=== PATIENT | female | born 1970 | race Caucasian/White ===

== ENCOUNTER 2018-12-30 03:39 | Observation (INO) | payer OTHER ==
[~2018-12-30] VITALS: Ht 160 cm; Wt 118.6 kg
[2018-12-30] MEDS ORDERED: METFORMIN HCL850 MG PO (04:08)
[2018-12-30] MEDS ORDERED: AMLODIPINE BESYL5 MG PO (04:08)
[2018-12-30] MEDS ORDERED: LOSARTAN POTASS50 MG PO (04:08)
[2018-12-30] MEDS ORDERED: ZYPREXA10 MG PO (04:08)
[2018-12-30] MEDS ORDERED: RANITIDINE HCL150 MG PO (04:09)
[2018-12-30] MEDS ORDERED: PROZAC40 MG PO (04:09)
[2018-12-30] MEDS ORDERED: ZYPREXA2.5 MG PO (04:09)
[2018-12-30] MEDS ORDERED: ZYRTEC10 MG PO (04:10)
[2018-12-30] MEDS ORDERED: SYMBICORT 16010.2 GM INH (04:11)
[2018-12-30] MEDS ORDERED: PROAIR HFA8.5 GM INH (04:11)
[2018-12-30] MEDS ORDERED: ALBUTEROL2.5 MG/3 M INH (04:12)
[2018-12-30] MEDS ORDERED: IPRAT-ALBUT 0.5-3 ML INH (04:12)
--- NOTE | 2018-12-30 06:55 | NUR ---
PT ADMITTED TO ROOM 108 FROM ED, WITH COPD EXCERBATION. ABLE TO AMBULATE BY SELF TO BATHROOM TO VOID, AND PUT SELF BACK INTO BED. CONT. PULSE OX IN PLACE, READING 91 ON RA, WITH 96 HR. NO INCREASE IN SOB NOTED WHEN AMBULATE TO BATHROOM AND BACK. 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 CALL LIGHT EXPLAINED WELL.
--- NOTE | 2018-12-30 08:49 | NUR ---
PATIENT IN BED RESTING SHE ORDERED BREAKFAST.
--- NOTE | 2018-12-30 08:58 | NUR ---
DR CARDOSO IN ROOM TO DO ADMISSION. PATIENT LAYING IN BED WITH HOB UP TO 45 DEGREES. INTERACTING WITH STAFF APPROPRIATELY.
--- NOTE | 2018-12-30 09:20 | NUR ---
PT PLANS ON RETURNING HOME [place]. WE TALKED IN DETAIL ABOUT HER PREFERENCES TO RETURN TO HER [place]. WE ALSO TALKED ABOUT HER ILLNESS AND REASONS FOR ADMISSION--SHE IS AWARE THAT SHE HAS ASTHMA AND STATES SHE KNOWS THIS IS WORSENING AND HAS A FOLLOW UP WITH A TRAVEL INSURANCE AGENT ON JANUARY 25 IN THE [facility]. SHE ALSO STATES SHE REALIZES HER COPD IS WORSENING. WE TALKED ABOUT HER WORKING WITH A CHW TO GET CONNECTED WITH A PCP NOW THAT SHE HAS MOVED HERE AND SHE WOULD MUCH LIKE IT IF THEY COULD GET HER STARTED WITH SOMEONE IN THE CLINIC. SHE STATES SHE UNDERSTANDS HER MEDICATIONS AND KNOWS THE SIDE EFFECTS OF THEM.
--- NOTE | 2018-12-30 10:02 | NUR ---
PT LAYING IN BED, FAMILY AT BS-PT ON RM O2. VERY LITTLE SLEEP FROM ALBUTEROL, AND PT SAYS AFTER IT WEARS OFF, SHE WILL SLEEP. FELT VERY GOOD ABOUT THE CARE SHE IS RECEIVING, GOOD HUMOR. THANKED ME FOR COMING IN, EXTENDED A BLESSING, WILL CONTINUE TO FOLLOW NEEDED
--- NOTE | 2018-12-30 18:20 | NUR ---
A&OX3. RA. SL IV. TOLERATING ADA DIET. UP IN ROOM STANDBY ASSIST. BS CHECKS AC/HS. CONT PULSE OX; TRENDING 02 SAT 91-93%. SOLUMEDROL/BRTH TX'S. CPAP AT NIGHT.
--- NOTE | 2018-12-30 20:08 | NUR ---
COOP WITH ASSESSMENT, SOB WHEN MOVING FROM COUCH BY WINDOW BACK TO BED. SATS DROPPED FROM 93% TO 89%, BACK TO 90-92% AFTER CDB. NO OTHER C/O
--- NOTE | 2018-12-31 03:00 | NUR ---
[facility] down time from 12/30/18 @2100 to 12/31/18 0300. See paper charting
--- NOTE | 2018-12-31 03:59 | NUR ---
RESTING, CPAP IN PLACE, NO RESP DISTRESS, CPOX INPLACE, SATS 96%. CALL LIGHT AND FLUDIS AT BEDSIDE
--- NOTE | 2018-12-31 05:09 | NUR ---
CURRENTLY RESTING, EYES CLOSED, WEARING HOME CPAP AT THIS TIME. ON ROOM AIR IN ROOM. RECEIVING NEBS. INDEPENDENT IN ROOM, VOIDING QS. COOPERATIVE WITH PROCEDURES. NO C/O APIN
--- NOTE | 2018-12-31 07:10 | NUR ---
BEDSIDE HANDOFF REPORT RECEIVED FROM RISK CONTROL CONSULTANT RN. PT SLEEPING, CPAP ON, LEFT UNDISTURBED.
--- NOTE | 2018-12-31 07:37 | NUR ---
PT REQUESTING NEB, SHEET ROCK TAPER CALLED AND WILL COME TO ROOM.
--- NOTE | 2018-12-31 08:29 | NUR ---
PT RESTIGN IN BED. PT ON ROOM AIR, 02 SATS 86-89%, PT STATES BREATHING FEELS BETTER THAN THIS MORNING BUT WORSE THAN YESTERDAY, LUNG SOUNDS COARSE WITH EXPIRATORY WHEEZE, OCCASIONAL PRODUCTIVE COUGH. PT DENIES PAIN. DENIES NAUSE, BOWEL TONES ACTIVE, TOLERATING ADA DIET, BLOOD GLUCOE 228, GIVEN 7 UNITS SS HUMALOG. CMS INTACT, TRACE EDEMA IN LOWER LEGS. PT PLACED ON 2L NC. PT DENIES OTHER NEEDS AT THIS TIME. INDEPENDENT IN ROOM.
[2018-12-31] MEDS ORDERED: VITAMIN C1000 MG PO (09:27)
[2018-12-31] MEDS ORDERED: MULTI VITAMIN1 EACH PO (09:27)
[2018-12-31] MEDS ORDERED: CALCIUM 600 +1 EAC3 PO (09:28)
--- NOTE | 2018-12-31 09:29 | NUR ---
MED REC COMPLETE
--- NOTE | 2018-12-31 09:35 | NUR ---
PATIENT SITTING UP IN CHAIR. DAUGHTER IN ROOM. VITAL SIGNS AND I&O DONE. LINENS CHANGED. CALL LIGHT WITHIN REACH. ICE WATER GIVEN. NO OTHER NEEDS AT THIS TIME
--- NOTE | 2018-12-31 12:44 | NUR ---
PT RESTING, ALERT, ORIENTED AND FINALLY GOT A GOOD NIGHTS REST. PT ADMITTED THAT SHE WAS SOMEWHAT DISCOURAGED THAT SHE HAD TO GO ON O2 NC. WE HAD GOOD DISCUSSION,PT ALSO SHARED THAT SHE IS STILL SMOKING.HER FAMILY DOES WELL AND THEY WANT TO QUIT. I INFORMED HER OF THE SMOKING CESSATION PROGRAM HERE AT [facility]-SHE ACKNOWLEDGED SHE WAS AWARE.PT ALSO MENTIONED OTHER FAMILY ISSUES THAT ARE ADDING STRESS TO HER LIFE.PT REQUESTED PRAYER, AND I ENCOURAGED PT TO BELIEVE THAT THINGS CAN CHANGE. SHE THANKED ME, I WILL FOLLOW NEEDED.
--- NOTE | 2018-12-31 13:30 | NUR ---
PT SITTING ON EDGE OF BED. AFTERNOON ASSESSMENT COMPLETED. LUNG SOUNDS CLEAR, O2 SATS 92% ON ROOM AIR. PT ASKING ABOUT DISCHARGE. DISCUSSED WITH MD, NEW ORDER FOR HOME O2 QUALIFIER. PT GETTING INTO SHOWER. PT DENIES OTHER NEEDS AT THIS TIME.
--- NOTE | 2018-12-31 13:40 | NUR ---
PATIENT SITTING UP IN CHAIR. RN IN ROOM. VITAL SIGNS AND I&O DONE. CALL LIGHT WITHIN REACH.IV COVERED AND BATHROOM SETS UP FOR SHOWER. NO OTHER NEEDS AT THIS TIME
[2018-12-31] MEDS ORDERED: DOXYCYCLINE HY100 MG PO (14:56)
[2018-12-31] MEDS ORDERED: NICOTINE PATCH1 EAC1 TD (14:56)
[2018-12-31] MEDS ORDERED: NICORETTE4 M2 BUCCAL (14:57)
[2018-12-31] MEDS ORDERED: PREDNISONE20 MG PO (14:58)
[2018-12-31] MEDS ORDERED: BUDESONIDE0.5 MG/2 M INH (14:59)
--- NOTE | 2018-12-31 15:37 | NUR ---
PATIENT SITTING UP IN CHAIR. RN IN ROOM. FINAL VITAL SIGNS WERE OBATINED PRIOR TO DISCHARGE FROM THE UNIT
--- NOTE | 2018-12-31 15:52 | NUR ---
PT IS NEEDING HOME O2, FAXED CHART NOTES INCLUDING FACE SHEET, ORDER, RT HOME O2 QUALIFIER, ER NOTES AND SUMMARY, H AND P, PROG NOTES TO [facility]. I DID CALL AND SPOKE WITH PATTIE AT [facility] AND TOLD HER WE WERE SENDING THE PT HOME WITH A PORTABLE TANK FROM HERE. SHE STATED THAT WAS FINE. PT ALSO HAD STATED THAT IF THE INSURANCE WOULD NOT COVER IT THAT SHE WOULD PAY FOR IT HERSELF. RECIEVED FAX CONFIRMATION FROM [facility].
== END 2018-12-31 16:08 | disposition home or self-care (01) ==
LOC: ED 03:39 → MS 03:40
PROVIDERS: ADMIT Student in an Organized Health Care Education/Training Program
DX: J44.1 Chronic obstructive pulmonary disease with (acute) exacerbation (principal); I10 Essential (primary) hypertension; E11.9 Type 2 diabetes mellitus without complications; F31.9 Bipolar disorder, unspecified; F17.210 Nicotine dependence, cigarettes, uncomplicated; Z91.040 Latex allergy status; Z79.84 Long term (current) use of oral hypoglycemic drugs; Z79.51 Long term (current) use of inhaled steroids; Z79.899 Other long term (current) drug therapy
CPT/HCPCS: 36415; 71045; 80053; 83735; 83880; 85025; 87502; 94640; 94644; 94761; 94762; 96374; 96376; 99285-25; 99406; G0378; J1815; J2930; J7512

== ENCOUNTER 2019-02-08 17:30 | Inpatient (IN) | payer OTHER ==
[~2019-02-08] VITALS: Ht 160 cm; Wt 128.3 kg
--- OUTSIDE RECORDS SUMMARY | ~2019-02-08 | XMS | Clinical Summary ---
Demographics + + + | Address | [address] | | | [place] [address] | + + + | Home Phone | | + + + | Preferred Language | Unknown | + + + | Marital Status | Legally | + + + | Islam Affiliation | Unknown | + + + | Race | Unknown | + + + | Ethnic Group | Unknown | + + + Author + + + | Author | [facility] | + + + | Organization | [facility] | + + + | Address | Unknown | + + + | Phone | Unavailable | + + + Support + + +---------+ + | Name | Relationship | Address | Phone | + + +---------+ + | Brittany Huff | ECON | Unknown | | + + +---------+ + Care Team Providers + +------+ + | Care Splitting Machine Feeder Name | Role | Phone | + +------+ + | Poly Mallory | PP | | + +------+ + Allergies + [...] + + + + + + | Other-Food | Hives | High | 12/19/19 | Peppers. | | | | | 16 | | + + + + + + | Peanut Oil | Hives | High | 12/17/19 | | | | | | 16 | | + + + + + + | Soybean-Containing | Hives | High | 12/17/19 | | | Drug Products | | | 16 | | + + + + + + Current Medications + + + +---------+------+------+-------+ | Prescription | Sig. | Disp. | Refills | Star | End | Statu | | | | | | t | Date | s | | | | | | Date | | | + + + +---------+------+------+-------+ | FLUoxetine HCl | Take 40 mg by mouth | | | | | Activ | | (PROZAC PO) | nightly. | | | | | e | + + + +---------+------+------+-------+ | OLANZapine | Take 15 mg by mouth | | | | | Activ | | (ZYPREXA PO) | nightly. | | | | | e | + + + +---------+------+------+-------+ | ranitidine | Take 150 mg by mouth | | | | | Activ | | (ZANTAC) 150 MG | 2 (two) times | | | | | e | | tablet | daily. | | | | | | + + + +---------+------+------+-------+ | albuterol | Take 3 mLs by | 75 mL | 12 | 09/0 | 09/0 | Activ | | (PROVENTIL) (2.5 | nebulization every 4 | | | 8/20 | 8/20 | e | | MG/3ML) 0.083% | (four) hours as | | | 18 | 19 | | | nebulizer solution | needed for Wheezing | | | | | | | | or Shortness of | | | | | | | | Breath. | | | | | | + + + +---------+------+------+-------+ | losartan (COZAAR) | Take 1 tablet by | 30 | 11 | 09/0 | 09/0 | Activ | | 50 MG tablet | mouth daily. | tablet | | 9/20 | 9/20 | e | | | | | | 18 | 19 | | + + + +---------+------+------+-------+ | metFORMIN | Take 1 tablet by | 60 | 1 | 09/0 | 09/0 | Activ | | (GLUCOPHAGE) 850 MG | mouth 2 (two) times | tablet | | 8/20 | 8/20 | e | | tablet | daily with meals. | | | 18 | 19 | | + + + +---------+------+------+-------+ | amLODIPine | Take 1 tablet by | 30 | 1 | 09/0 | | Activ | | (NORVASC) 5 MG | mouth daily. | tablet | | [...] | | 18 | | | | MG per tablet | Pain (chief | | | | | | | | complaint is chest | | | | | | | | pressure r/t SOB). | | | | | | + + + +---------+------+------+-------+ | aspirin 81 MG EC | Take 1 tablet by | 30 | 11 | 09/0 | 09/0 | Activ | | tablet | mouth daily with | tablet | | /20 | 9/20 | e | | | breakfast. | | | 18 | 19 | | + + + +---------+------+------+-------+ | | Inhale 2 puffs into | 1 | 1 | 09/0 | 09/0 | Activ | | budesonide-formotero | the lungs 2 (two) | Inhaler | | 8/20 | 8/20 | e | | l (SYMBICORT) | times daily. | | | 18 | 19 | | | 160-4.5 MCG/ACT | | | | | | | | inhaler | | | | | | | + + + +---------+------+------+-------+ | nitroGLYCERIN | Place 1 tablet under | 30 | 1 | 09/0 | 09/0 | Activ | | (NITROSTAT) 0.4 MG | the tongue every 5 | tablet | | 8/20 | 8/20 | e | | SL tablet | (five) minutes as | | | 18 | 19 | | | | needed for Chest | | | | | | | | pain. | | | | | | + + + +---------+------+------+-------+ | Nebulizer (medical | Dispense and provide | 1 each | 0 | 09/0 | | Activ | | device) | instruction as | | | 8/20 | | e | | | needed. | | | 18 | | | + + + +---------+------+------+-------+ | albuterol | Inhale 2 puffs into | | | | | Activ | | (PROVENTIL | the lungs every 4 | | | | | e | | HFA;VENTOLIN HFA) | (four) hours as | | | | | | | 108 (90 Base) | needed for Wheezing. | | | | | | | MCG/ACT inhaler | | | | | | | + + + +---------+------+------+-------+ | Multiple | Take 1 tablet by | | | | | Activ | | Vitamins-Minerals | mouth daily. | | | | | e | | (MULTIVITAMIN WITH | | | | | | | | MINERALS) tablet | | | | | | | + + + +---------+------+------+-------+ | ascorbic acid | Take 1,000 mg by | | | | | Activ | | (VITAMIN C) 1000 MG | mouth 2 (two) times | | | | | e | | tablet | daily. | | | | | | + + + +---------+------+------+-------+ | loperamide | Take 2 mg by mouth 4 | | | | | Activ | | (IMODIUM) 2 MG | (four) times daily | | | | | e | | capsule | as needed for | | | | | | | | Diarrhea. | | | | | | + + + +---------+------+------+-------+ | | Take 3 mLs by | 360 mL | 0 | 11/1 | | Activ | | ipratropium-albutero | nebulization 2 (two) | | | 2/20 | | e | | l (DUO-NEB) 0.5-2.5 | Times Daily Taper | | | 18 | | | | mg/3mL | Before Breakfast | | | | | | | | Bedtime. | | | | | | + + + +---------+------+------+-------+ | albuterol | Take 6 mLs by | 20 vial | 0 | 08/27 | 08/27 | Activ | | (PROVENTIL) (2.5 | nebulization every 6 | | | 2/20 | 2/20 | e | | MG/3ML) 0.083% | (six) hours as | | | 18 | 19 | | | nebulizer solution | needed for Wheezing. | | | [...] 07/01/2018 | | current use of insulin (HCC) | | + + + | Essential [...] disorder | 12/17/2015 | + + + Resolved Problems + + + + | Problem | Noted | Resolved | | | Date | Date | + + + + | Chest pressure | 07/01/20 | | | | 18 | 8 | + + + + | Asthma with acute exacerbation | 07/01/20 | | | | 18 | 8 | + + + + | SIRS (systemic inflammatory response syndrome) (HCC) | 12/17/19 | | | | 16 | 8 | + + + + Family History + + [...] | Alive | | + +------+--------+ + Social History + +-------+ +--------+------+ | Tobacco Use | Types | Packs/Day | Years | Date | | | | | Used | | + +-------+ +--------+------+ | Current Every Day | | 0.5 | 20 | | | Smoker | | | | | + +-------+ +--------+------+ + +---+---+---+ | Smokeless Tobacco: | | | | | Never Used | | | | + +---+---+---+ + + | Tobacco Cessation: Ready to Quit: No; Counseling Given: Yes | + + + + +---------+ + | Alcohol Use | Drinks/We | oz/Week | Comments | | | ek | | | + + +---------+ + | No | | | | + + +---------+ + + + + | Sex Assigned at | Date Recorded | | | | + + + | Not on file | | + + + Last Filed Vital Signs + + + + | Vital Sign | Reading | Time Taken | + + + + | Blood Pressure | 135/66 | 2018 6:54 PM PST | + + + + | Pulse | 82 | 2018 6:54 PM PST | + + + + | Temperature | 37.2 C (98.9 F) | 2018 4:45 PM PST | + + + + | Respiratory Rate | 20 | 2018 6:54 PM PST | + + + + | Oxygen Saturation | 95% | 2018 6:54 PM PST | + + + + | Inhaled Oxygen | - | - | | Concentration | | | + + + + | Weight | 121 kg (266 lb 12.1 | 2018 4:45 PM PST | | | oz) | | + + + + | Height | 160 cm (5' 3") | 2018 4:45 PM PST | + + + + | Body Mass Index | 47.25 | 2018 4:45 PM PST | + + + + Plan of Treatment + + + + + | Health Maintenance | Due Date | Last Done | Comments | + + + + + | Diabetic Eye Exam | | | | | | 8 | | | + + + + + | Diabetic Foot Exam | | | | | | 8 | | | + + + + + | Microalbumin | | | | | Screening | 8 | | | + + + + + | Vaccine: | | | | | Dtap/Tdap/Td (1 - | 7 | | | | Tdap) | | | | + + + + + | Vaccine: | | | | | Pneumococcal 19-64 | 7 | | | | (PPSV23 only) Medium | | | | | Risk (1 of 1 - | | | | | PPSV23) | | | | + + + + + | Cervical Cancer | | | | | Screening (Pap) | 8 | | | + + + + + | Statin Therapy | | | | | (optimal intensity) | 6 | | | + + + + + | Breast Cancer | | | | | Screening | 8 | | | | (Mammogram) | | | | + + + + + | Vaccine: Zoster (1 | | | | | of 2) | 8 | | | + + + + + | Hemoglobin A1c | | 07/02/2018, 12/20/2015 | | | | 9 | | | + + + + + | Vaccine: Influenza | | | | | (Season Ended) | 9 | | | + + + + + | Colon Cancer | | 12/22/2015 | | | Screening | 6 | | | | (Colonoscopy) | | | | + + + + + Results Not on filefrom Last 3 Months Insurance + +--------+ +------+-------+---------+ | Payer | Benefi | Subscriber | Type | Phone | Address | | | t Plan | ID | | | | | | / | | | | | | | Group | | | | | + +--------+ +------+-------+---------+ | [employer] [place] | [employer] | [id number] | | | | | [place] | & | | | | | | | [place] | | | | | | | [place] | | | | | | | [place] | | | | | + +--------+ +------+-------+---------+ + +--------+ +--------+ + + | Guarantor Name | Accoun | Relation to | Date | Phone | Billing Address | | | t Type | Patient | of | | | | | | | | | | + +--------+ +--------+ + + | MILLY HUFF | Worker | Self | [birth year] | Home: | [id number] | | | s Comp | | 1969 | +- | [place] | | | | | | [phone] | [phone] | + +--------+ +--------+ + + | MILLY HUFF | Person | Self | [birth year] | Home: | [address] | | | al/Fam | | 1969 | +- | [place] | | | [place] | | | [phone] | [phone] | + +--------+ +--------+ + +
--- OUTSIDE RECORDS SUMMARY | ~2019-02-08 | XMS | Clinical Summary ---
Demographics + + + | Address | [address] | | | [place] [address] | + + + | Home Phone [...] + + + | Author | [facility] | + + + | Organization | [facility] [facility] | + + + | Address | Unknown | + + + | Phone | Unavailable | + + + Support + + +---------+ + | Name | Relationship | Address | Phone | + + +---------+ + | Brittany Huff | ECON | Unknown | | + + +---------+ + Care Team Providers + +------+ + | Care Patient Relations Director Name | Role | Phone | + [...] | [employer] [place] | LABOR | [id number] | | | | | STATE | [...] | Self | [birth year] | Home: | [address] | | | s Comp | | 1969 | +- | [place] | | | | | | [phone] | [phone] | + +--------+ +--------+ + + | MILLY HUFF | Person | Self | [birth year] | Home: | [address] | | | al/Fam | | 1969 | +- | [place] | | | [place] | | | [phone] | [phone] | + +--------+ +--------+ + +
--- OUTSIDE RECORDS SUMMARY | ~2019-02-08 | XMS | Clinical Summary ---
Demographics + + + | Address | [address] | | | [place] [address] | + + + | Home Phone | | + + + | Preferred Language | Unknown | + + + | Marital Status | Legally | + + + | Muslim Affiliation | Unknown | + + + | Race | Unknown | + + + | Ethnic Group | Unknown | + + + Author + + + | Author | [facility] | + + + | Organization | [facility] | + + + | Address | Unknown | + + + | Phone | Unavailable | + + + Support + + +---------+ + | Name | Relationship | Address | Phone | + + +---------+ + | Brittany Huff | ECON | Unknown | | + + +---------+ + Care Team Providers + +------+ + | Care Ecology Professor Name | Role | Phone | + [...] | [employer] [place] | LABOR | [id number] | | | | | STATE | [...] | Self | [birth year] | Home: | [address] | | | s Comp | | 1969 | +- | [place] | | | | | | [phone] | [phone] | + +--------+ +--------+ + + | MILLY HUFF | Person | Self | [birth year] | Home: | [address] | | | al/Fam | | 1969 | +- | [place] | | | [place] | | | [phone] | [phone] | + +--------+ +--------+ + +
--- OUTSIDE RECORDS SUMMARY | ~2019-02-08 | XMS | Clinical Summary ---
Demographics + + + | Address | [address] | | | [place] [address] | + + + | Home Phone | | + + + | Preferred Language | Unknown | + + + | Marital Status | Legally | + + + | Spiritism Affiliation | Unknown | + + + | Race | Unknown | + + + | Ethnic Group | Unknown | + + + Author + + + | Author | [facility] | + + + | Organization | [facility] | + + + | Address | Unknown | + + + | Phone | Unavailable | + + + Support + + +---------+ + | Name | Relationship | Address | Phone | + + +---------+ + | Brittany Huff | ECON | Unknown | | + + +---------+ + Care Team Providers + +------+ + | Care Roll On Worker Name | Role | Phone | + [...] | [employer] | LABOR | [phone] | | | | | STATE | [...] | Self | [birth year] | Home: | [address] | | | s Comp | | 1969 | +- | [place] | | | | | | [phone] | [phone] | + +--------+ +--------+ + + | MILLY HUFF | Person | Self | [birth year] | Home: | [address] | | | al/Fam | | 1969 | +- | [place] | | | [place] | | | [phone] | [phone] | + +--------+ +--------+ + +
[~2019-02-08 17:30] MED LIST: ALBUTEROL2.5 MG/3 M INH; AMLODIPINE BESYL5 MG PO; BUDESONIDE0.5 MG/2 M INH; CALCIUM 600 +1 EAC3 PO; DOXYCYCLINE HY100 MG PO; IPRAT-ALBUT 0.5-3 ML INH; LOSARTAN POTASS50 MG PO; METFORMIN HCL500 MG PO; MULTI VITAMIN1 EACH PO; NICORETTE4 M2 BUCCAL; NICOTINE PATCH1 EAC1 TD; PREDNISONE20 MG PO; PROAIR HFA8.5 GM INH; PROZAC40 MG PO; RANITIDINE HCL150 MG PO; SYMBICORT 16010.2 GM INH; VITAMIN C1000 MG PO; ZYPREXA10 MG PO; ZYPREXA2.5 MG PO; ZYRTEC10 MG PO
--- OUTSIDE RECORDS SUMMARY | 2019-02-08 17:32 | XMS ---
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 HUFF [employer] Contact Printer Events No recent Security Events currently on file CRITERIA MET - [facility] - Has Care Guidelines CARE PROVIDERS Arnold Ruggiero Internal Medicine: Pulmonary Disease 02/03/2019-Current PHONE: Unknown Jose Luis has no Care Guidelines for this patient. Care History Medical/Surgical 02/03/2019 [facility] - Patient is currently established with [facility]. If patient is seen in the ED during business hours. Please contact CHWs at [facility]. Care Recommendation: This patient has had 5 or more Emergency Department visits in the last 12 months.\T\nbsp; Patient requires education on the scope and purpose of the ED as an acute care provider not a Primary Care Provider and should not be utilized for chronic conditions.\T\nbsp; These are guidelines and the provider should exercise clinical judgment when providing care. E.D. VISIT COUNT (12 MO.) 4 [facility] ED 2 [facility]. TOTAL 6 NOTE: Visits indicate total known visits. ED/C VISIT TRACKING (12 MO.) 02/08/2019 17:30 [facility] TYPE: Emergency COMPLAINT: - SOB 12/30/2018 03:39 [facility] [place] TYPE: Emergency COMPLAINT: - SOB 2018 16:41 [facility] [place] TYPE: Emergency DIAGNOSES: - asthma, sinus congestion - Unspecified asthma with (acute) exacerbation - Facial Pain - Asthma 08/27/2018 15:34 [facility] TYPE: Emergency DIAGNOSES: - Wheezing - Shortness of Breath - Cough - cough, congestion 06/30/2018 21:11 [facility] TYPE: Emergency DIAGNOSES: - Acute bronchitis, unspecified - Unspecified asthma with (acute) exacerbation - Bronchitis, not specified as acute or chronic - Nicotine dependence, unspecified, uncomplicated - Shortness of Breath - SOB 05/24/2018 18:44 [facility] TYPE: Emergency DIAGNOSES: - Abdominal Pain - Noninfective gastroenteritis and colitis, unspecified - Diarrhea - Emesis - emesis diarrhea INPATIENT VISIT TRACKING (12 MO.) 12/30/2018 03:40 [facility] [place] TYPE: Observation COMPLAINT: - COPD EXACERBATION DIAGNOSES: - Chronic obstructive pulmonary disease with (acute) exacerbation - Other snf (current) drug therapy - Latex allergy status - Essential (primary) hypertension - Bipolar disorder, unspecified - 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
--- NOTE | 2019-02-08 20:01 | NUR ---
RECIEVED REPORT FROM BRICE HOLGUIN IN ER. ALL QUESTIONS ANSWERED. WAITING FOR PATIENT TO ARRIVE TO THE FLOOR AT THIS TIME.
--- NOTE | 2019-02-08 20:30 | NUR ---
PT ADMITTED TO ROOM 122 FROM THE ED, PT INDEPENDENTLY GOT OFF BED, SCALE WEIGHT, WALKED TO BATHROOM, RA, TOLERATED WELL. HOB ELEVATED TO HER COMFORT. EDUCATED PODOPEDIATRICIAN LIGHT, PT MALE FRIEND AT BEDSIDE.
--- NOTE | 2019-02-08 22:00 | NUR ---
PT REQUESTED AND RECEIVED BOX LUNCH, DRANK WATER AND REQUESTED MORE. CONTINUES ON RA, SATS IN THE 90'S.
--- NOTE | 2019-02-08 23:30 | NUR ---
ASSESSEMENT COMPLETE, REFER TO ASSESSMENT. PATIENT DENIES CHEST PAIN, SOB OR DIFFICULY BREATHING. PATIENT REPORTS PRESSURE AROUND LUNGS, STATING "IT FEELS LIKE SOMEONE IS PUSHING THEIR HANDS ON MY CHEST". PATIENT REPORTS THAT THE PRESSURE SENSATION HAS STAYED THE SAME AND HASN'T GOTTEN WORSE. PATIENT DENIES NUMBNESS OR TINGLING IN EXTREMITIES. IV ASSESSED, WNL. MEDICATIONS ADMINISTERED PER MAR ORDER. VISITOR AT BEDSIDE. INCENTIVE SPIROMETER AND ACAPELLA AT BEDSIDE, PATIENT EXPRESSES KNOWLEDGE OF DEVICES AND DENIES ANY QUESTIONS. CALL LIGHT WITHIN REACH. NO MORE NEEDS AT THIS TIME.
--- NOTE | 2019-02-09 01:07 | NUR ---
ROUNDED ON PATIENT RESTING IN BED WITH EYES CLOSED, RESPIRATORY RATE IS EVEN AND UNLABORED. SALINE LOCKED. CALL LIGHT WITHIN REACH. NO MORE NEEDS AT THIS TIME.
--- NOTE | 2019-02-09 02:39 | NUR ---
ASSESSMENT COMPLETE, REFER TO ASSESSMENT. PATIENT DENIES HAVING SHORTNESS OF BREATH, DIFFICULTY BREATHING OR CHEST PAIN. AUSCULTATED LUNG SOUNDS, EXPIRATORY WHEEZES NOTED, NO SIGNS OF DISTRESS. PATIENT DENIES HAVING NUMBNESS AND TINGLING IN EXTREMITIES. THIS RN SBA PATIENT TO RESTROOM, PATIENT SAFELY BACK INTO BED. FAMILY AT BEDSIDE. CALL LIGHT WITHIN REACH. NO MORE NEEDS AT THIS TIME. POSSESSIONS AT BEDSIDE.
--- NOTE | 2019-02-09 04:16 | NUR ---
ROUNDED ON PATIENT RESTING IN BED WITH EYES CLOSED, RESPIRATORY RATE IS EVEN AND UNLABORED. CALL LIGHT WITHIN REACH.
--- NOTE | 2019-02-09 06:32 | NUR ---
rounded on patient for medication administraton. medication administration complete per dec order. fresh water provided to patient per patient request. call light within reach. no more needs at this time.
--- NOTE | 2019-02-09 08:39 | NUR ---
PT CALLED FOR MENU, AND GOT HER BREAKFAST ORDER AND ALSO A CAREGIVER TRAY FOR HER . PT IS IN [facility] AND REMEMBERED ME FROM HER LAST HOSPITAL VISIT. VERY TALKATIVE. CALL LIGHT IN PLACE.
--- NOTE | 2019-02-09 09:44 | NUR ---
PATIENT IN BED RESTING WITH EYES CLOSED, IN ROOM. CALL LIGHT IN REACH. NO FURTHER NEEDS AT THIS TIME.
--- NOTE | 2019-02-09 10:15 | NUR ---
PT IN BED, DENIES NEEDS. DENIES PAIN, REPORTS SOME SHORTNESS OF BREATH, BUT STATES THAT THIS IS MUCH IMPROVED FROM YESTERDAY. LUNGS HAVE EXPIRATORY WHEEZES THROUGHOUT, WITH COARSE SOUNDS IN LEFT UPPER AND LOWER LOBES. PT ON RA. PERSONAL SUPPLIES AND CALL LIGHT IN REACH.
[2019-02-09] MEDS ORDERED: PREDNISONE20 MG PO (11:48)
[2019-02-09] MEDS ORDERED: FLOVENT HFA12 G1 INH (11:49)
[2019-02-09] MEDS ORDERED: LIPITOR20 MG PO (11:51)
[2019-02-09] MEDS ORDERED: SINGULAIR10 MG PO (11:52)
[2019-02-09] MEDS ORDERED: FLONASE ALLERG9.9 ML NAS (11:53)
--- NOTE | 2019-02-09 12:24 | NUR ---
PT SITTING UP IN BED, EATING LUNCH. DENIED NEEDS AT THIS TIME.
--- NOTE | 2019-02-09 13:39 | NUR ---
PT SITTING UP IN BED. ATE 75% OF LUNCH, TOLERATED WELL. RESPIRATIONS EVEN AND UNLABORED. PT REMAINS ON RA. PERSONAL SUPPLIES AND CALL LIGHT IN REACH.
--- NOTE | 2019-02-09 13:59 | NUR ---
MED REC COMPLETE
[2019-02-09] MEDS ORDERED: AZITHROMYCIN250 MG PO (14:25)
[2019-02-09] MEDS ORDERED: ZYPREXA2.5 MG PO (14:26)
[2019-02-09] MEDS ORDERED: OLANZAPINE2.5 MG PO (14:26)
[2019-02-09] MEDS ORDERED: PREDNISONE10 MG PO (14:37)
[2019-02-09] MEDS ORDERED: ADVAIR 250-501 EACH INH (14:38)
--- NOTE | 2019-02-09 15:12 | NUR ---
PATIENT IN BED RESTING. FAMILY IN ROOM. FRESH WATER GIVEN. CALL [facility] REACH. NO FURTHER NEEDS AT THIS TIME.
--- NOTE | 2019-02-09 16:55 | EKG ---
[facility] [address] [place], [place] [address] Signed Normal sinus rhythm Normal ECG No previous ECGs available Confirmed by GISELLE CARDOSO DO ([id number]) on 02/09/2019 4:55:18 PM Electronically Signed By: GISELLE CARDOSO DO 02/09/19 1655 PATIENT NAME: MILYL HUFF Electrocardiogram DATE OF : 66 PHYSICIAN: GISELLE CARDOSO DO REPORT #: [id number] REPORT IS CONFIDENTIAL AND NOT TO BE RELEASED WITHOUT AUTHORIZATION
== END 2019-02-09 16:04 | disposition home or self-care (01) | DRG 192 ==
LOC: ED 17:30 → MS 17:31 → ED 17:31 → MS 20:45
PROVIDERS: ADMIT Student in an Organized Health Care Education/Training Program
DX: J44.1 Chronic obstructive pulmonary disease with (acute) exacerbation (principal); I10 Essential (primary) hypertension; E11.9 Type 2 diabetes mellitus without complications; F17.200 Nicotine dependence, unspecified, uncomplicated; F31.9 Bipolar disorder, unspecified; K52.9 Noninfective gastroenteritis and colitis, unspecified; Z91.040 Latex allergy status; Z79.51 Long term (current) use of inhaled steroids; Z79.52 Long term (current) use of systemic steroids; Z79.899 Other long term (current) drug therapy
CPT/HCPCS: 36415; 71045; 80048; 80053; 83735; 83880; 84484; 85025; 93005; 93010; 94640; 94644; 94664; 94668; 94760; 96365; 97165; 99285-25; 99406; J1650; J1815; J2930; J3475

== ENCOUNTER 2019-04-16 11:42 | Emergency (ER) | payer OTHER ==
[~2019-04-16] VITALS: Ht 160 cm; Wt 128.3 kg
[~2019-04-16 11:42] MED LIST changes: +ADVAIR 250-501 EACH INH; +AZITHROMYCIN250 MG PO; +FLONASE ALLERG9.9 ML NAS; +FLOVENT HFA12 G1 INH; +LIPITOR20 MG PO; +OLANZAPINE2.5 MG PO; +PREDNISONE10 MG PO; +SINGULAIR10 MG PO
--- OUTSIDE RECORDS SUMMARY | 2019-04-16 11:44 | XMS ---
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 Arnold Ruggiero Internal Medicine: Pulmonary Disease 02/03/2019-Current PHONE: Unknown Jose Luis has no Care Guidelines for this patient. Care History Medical/Surgical 02/03/2019 [facility] - Patient is currently established with [facility]. If patient is seen in the ED during business hours. Please contact CHWs at [facility]. Care Recommendation: This patient has had 5 [...] care. E.D. VISIT COUNT (12 MO.) 4 [facility] ED 3 [facility] TOTAL 7 NOTE: Visits indicate total known visits. ED/UCC VISIT TRACKING (12 MO.) 04/16/2019 11:42 [facility] [place] TYPE: Emergency COMPLAINT: - FACIAL SWELLING 02/08/2019 17:30 [facility] [place] TYPE: Emergency COMPLAINT: - COPD EXACERBATION 12/30/2018 03:39 [facility] [place] TYPE: Emergency COMPLAINT: - SOB 2018 16:41 [facility] TYPE: Emergency DIAGNOSES: - asthma, sinus congestion - Unspecified asthma with (acute) exacerbation - Facial Pain - Asthma 08/27/2018 15:34 [facility] TYPE: Emergency DIAGNOSES: - Wheezing - Shortness of Breath - Cough - cough, congestion 06/30/2018 21:11 [facility] TYPE: Emergency DIAGNOSES: - Acute bronchitis, unspecified - Unspecified asthma with (acute) exacerbation - Bronchitis, not specified as acute or chronic - Nicotine dependence, unspecified, uncomplicated - Shortness of Breath - SOB 05/24/2018 18:44 [facility] [place] TYPE: Emergency DIAGNOSES: - Abdominal Pain - Noninfective gastroenteritis and colitis, unspecified - Diarrhea - Emesis - emesis diarrhea INPATIENT VISIT TRACKING (12 MO.) 02/08/2019 20:45 [facility] [place] TYPE: Medical Surgical COMPLAINT: - COPD EXACERBATION DIAGNOSES: - Essential (primary) hypertension - Latex allergy status - Essential (primary) hypertension - Nicotine dependence, unspecified, uncomplicated - Noninfective gastroenteritis and colitis, unspecified - custodial (current) use of inhaled steroids - Other alf (current) drug therapy - Latex allergy status - Nicotine dependence, unspecified, uncomplicated - custodial (current) use of systemic steroids - custodial (current) use of inhaled steroids - Type 2 diabetes mellitus without complications - Bipolar disorder, unspecified - Bipolar disorder, unspecified - remote computer terminal operator (current) use of systemic steroids - Other alf (current) drug therapy - Chronic obstructive pulmonary disease with (acute) exacerbation - Noninfective gastroenteritis and colitis, unspecified - Type 2 diabetes mellitus without complications 12/30/2018 03:40 [facility] [place] TYPE: Observation COMPLAINT: - COPD EXACERBATION DIAGNOSES: - Chronic obstructive pulmonary disease with (acute) exacerbation - Other terminal operations supervisor (current) drug therapy - Latex allergy status - Essential (primary) hypertension - Bipolar disorder, unspecified - custodial (current) use of inhaled steroids - Type 2 diabetes mellitus without complications - custodial (current) use of oral hypoglycemic drugs - Shortness of breath - Nicotine dependence, cigarettes, uncomplicated 06/30/2018 21:11 [facility] TYPE: General Medicine DIAGNOSES: - Unspecified asthma with (acute) exacerbation [email or web address]
[2019-04-16] MEDS ORDERED: PREDNISONE20 MG PO (14:12)
[2019-04-16] MEDS ORDERED: EPIPEN 2-P0.3 MG/0.3 IM (14:12)
== END 2019-04-16 14:26 | disposition home or self-care (01) ==
LOC: ED 11:42
DX: T78.2XXA Anaphylactic shock, unspecified, initial encounter (principal); I10 Essential (primary) hypertension; E11.9 Type 2 diabetes mellitus without complications; F17.200 Nicotine dependence, unspecified, uncomplicated; Z90.49 Acquired absence of other specified parts of digestive tract; Z91.040 Latex allergy status; Z91.018 Allergy to other foods; Z91.010 Allergy to peanuts; Z91.012 Allergy to eggs; Z79.899 Other long term (current) drug therapy
CPT/HCPCS: 94640; 96361; 96374; 96375; 99283-25; J0171; J2930; J7040

== ENCOUNTER 2019-07-02 17:10 | Emergency (ER) | payer OTHER ==
[~2019-07-02] VITALS: Ht 160 cm; Wt 130.2 kg
[~2019-07-02 17:10] MED LIST changes: +EPIPEN 2-P0.3 MG/0.3 IM
--- OUTSIDE RECORDS SUMMARY | 2019-07-02 17:14 | XMS ---
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 Care History Medical/Surgical 02/03/2019 [facility] - Patient is currently established with [facility]. If patient is seen in the ED during business hours. Please contact CHWs at [facility]. Care Recommendation: This patient has had 5 [...] providing care. E.D. VISIT COUNT (12 MO.) 2 [facility] ED 4 [facility] TOTAL 6 NOTE: Visits indicate total known visits. ED/UCC VISIT TRACKING (12 MO.) 07/02/2019 17:11 [facility] [place] TYPE: Emergency COMPLAINT: - CHEST PAIN 04/16/2019 11:42 [facility] [place] TYPE: Emergency COMPLAINT: - FACIAL SWELLING DIAGNOSES: - Other ferry terminal supervisor (current) drug therapy - Anaphylactic shock, unspecified, initial encounter - Essential (primary) hypertension - Allergy to eggs - Latex allergy status - Dyspnea, unspecified - Type 2 diabetes mellitus without complications - Allergy to peanuts - Acquired absence of other specified parts of digestive tract - Nicotine dependence, unspecified, uncomplicated - Allergy to other foods 02/08/2019 17:30 [facility] [place] TYPE: Emergency COMPLAINT: - COPD EXACERBATION 12/30/2018 03:39 [facility] [place] TYPE: Emergency COMPLAINT: - SOB 2018 16:41 [facility] TYPE: Emergency DIAGNOSES: - asthma, sinus congestion - Unspecified asthma with (acute) exacerbation - Facial Pain - Asthma 08/27/2018 15:34 [facility] TYPE: Emergency DIAGNOSES: - Wheezing - Shortness of Breath - Cough - cough, congestion INPATIENT VISIT TRACKING (12 MO.) 02/08/2019 20:45 [facility] TYPE: Medical Surgical COMPLAINT: - COPD EXACERBATION DIAGNOSES: - Essential (primary) hypertension - Latex allergy status - Essential (primary) hypertension - Nicotine dependence, unspecified, uncomplicated - Noninfective gastroenteritis and colitis, unspecified - assisted (current) use of inhaled steroids - Other detention (current) drug therapy - Latex allergy status - Nicotine dependence, unspecified, uncomplicated - assisted (current) use of systemic steroids - equipment operator intermodal 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 (current) use of inhaled steroids - Type 2 diabetes mellitus without complications - Bipolar disorder, unspecified - Bipolar disorder, unspecified - equipment operator intermodal yard (current) use of systemic steroids - Other detention (current) drug therapy - Chronic obstructive pulmonary disease with (acute) exacerbation - Noninfective gastroenteritis and colitis, unspecified - Type 2 diabetes mellitus without complications 12/30/2018 03:40 [facility] TYPE: Observation COMPLAINT: - COPD EXACERBATION DIAGNOSES: - Chronic obstructive pulmonary disease with (acute) exacerbation - Other ferry terminal supervisor (current) drug therapy - Latex allergy status - Essential (primary) hypertension - Bipolar disorder, unspecified - equipment operator intermodal yard (current) use of inhaled steroids - Type 2 diabetes mellitus without complications - assisted (current) use of oral hypoglycemic drugs - Shortness of breath - Nicotine dependence, cigarettes, uncomplicated [email or web address]
--- NOTE | 2019-07-03 14:07 | EKG ---
[facility] [address] [place], [place] [address] Signed Normal sinus rhythm Low voltage QRS Borderline ECG When compared with ECG of 08-FEB-2019 17:40, Nonspecific T wave abnormality now evident in Lateral leads Confirmed by GISELLE CARDOSO DO ([id number]) on 07/03/2019 2:07:40 PM Electronically Signed By: GISELLE CARDOSO DO 07/03/19 1407 PATIENT NAME: MILLY HUFF Electrocardiogram DATE OF : 66 PHYSICIAN: GISELLE CARDOSO DO REPORT #: [id number] REPORT IS CONFIDENTIAL AND NOT TO BE RELEASED WITHOUT AUTHORIZATION
--- NOTE | 2019-07-03 14:08 | EKG ---
[facility] [address] [facility] [address] [facility] [place] [address] Signed Normal sinus rhythm Low voltage QRS Borderline ECG When compared with ECG of 02-JUL-2019 17:12, (Unconfirmed) Nonspecific T wave abnormality no longer evident in Lateral leads Confirmed by GISELEL CARDOSO DO ([id number]) on 07/03/2019 2:08:06 PM Electronically Signed By: GISELLE CARDOSO DO 07/03/19 1408 PATIENT NAME: MILLY HUFF Electrocardiogram DATE OF : 66 PHYSICIAN: GISELLE CARDOSO DO REPORT #: [id number] REPORT IS CONFIDENTIAL AND NOT TO BE RELEASED WITHOUT AUTHORIZATION
== END 2019-07-02 22:34 | disposition home or self-care (01) ==
LOC: ED 17:10
DX: I20.9 Angina pectoris, unspecified (principal); I10 Essential (primary) hypertension; E11.9 Type 2 diabetes mellitus without complications; J45.909 Unspecified asthma, uncomplicated; Z87.891 Personal history of nicotine dependence; Z91.040 Latex allergy status; Z91.018 Allergy to other foods; Z79.52 Long term (current) use of systemic steroids; Z79.84 Long term (current) use of oral hypoglycemic drugs; Z79.899 Other long term (current) drug therapy
CPT/HCPCS: 71045; 71260; 80053; 83735; 84484; 85025; 85379; 93005; 93010; 93971; 99285-25; J1885; Q9967

== ENCOUNTER 2019-07-21 12:18 | Emergency (ER) | payer OTHER ==
[~2019-07-21] VITALS: Ht 160 cm; Wt 130.2 kg
--- OUTSIDE RECORDS SUMMARY | 2019-07-21 12:20 | XMS ---
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 Care History Medical/Surgical 07/05/2019 [facility] - PATIENT HAS AN APT WITH DR RUGGIERO ON 08/24/19. - PATIENT CAN BE SEEN IN THE WALK IN CLINIC FOR NON EMERGENT MEDICAL NEEDS. 02/03/2019 [facility] - Patient is currently established with [facility]. If patient is seen in the ED during business hours. Please contact CHWs at [facility]. Care Recommendation: This patient [...] care. E.D. VISIT COUNT (12 MO.) 2 [facility] ED 5 [facility] TOTAL 7 NOTE: Visits indicate total known visits. ED/UCC VISIT TRACKING (12 MO.) 07/21/2019 12:19 [facility] [place] TYPE: Emergency COMPLAINT: - SOB 07/02/2019 17:11 [facility] [place] TYPE: Emergency COMPLAINT: - CHEST PAIN DIAGNOSES: - Precordial pain - [facility] (current) use of oral hypoglycemic drugs - Essential (primary) hypertension - Personal history of nicotine dependence - Type 2 diabetes mellitus without complications - Angina pectoris, unspecified - Allergy to other foods - Unspecified asthma, uncomplicated - Other intermediate (current) drug therapy - Latex allergy status - terminal system operator (current) use of systemic steroids 04/16/2019 11:42 [facility] [place] TYPE: Emergency COMPLAINT: - FACIAL SWELLING DIAGNOSES: - Other intermediate (current) drug therapy - Anaphylactic shock, unspecified, [...] TYPE: Emergency COMPLAINT: - SOB 2018 16:41 [facility] TYPE: Emergency DIAGNOSES: - asthma, sinus congestion - Unspecified asthma with (acute) exacerbation - Facial Pain - Asthma 08/27/2018 15:34 [facility] TYPE: Emergency DIAGNOSES: - Wheezing - Shortness of Breath - Cough - cough, congestion INPATIENT VISIT TRACKING (12 MO.) 02/08/2019 20:45 [facility] [place] TYPE: Medical Surgical COMPLAINT: - COPD EXACERBATION DIAGNOSES: - Essential (primary) hypertension - Latex allergy status - Essential (primary) hypertension - Nicotine dependence, unspecified, uncomplicated - Noninfective gastroenteritis and colitis, unspecified - terminal system operator (current) use of inhaled steroids - Other terminal supervisor (current) drug therapy - Latex allergy status - Nicotine dependence, unspecified, uncomplicated - [facility] (current) use of systemic steroids - [facility] (current) use of inhaled steroids - Type 2 diabetes mellitus without complications - Bipolar disorder, unspecified - Bipolar disorder, unspecified - terminal system operator (current) use of systemic steroids - Other terminal supervisor (current) drug therapy - Chronic obstructive pulmonary disease with (acute) exacerbation - Noninfective gastroenteritis and colitis, unspecified - Type 2 diabetes mellitus without complications 12/30/2018 03:[address] [facility] [place] TYPE: Observation COMPLAINT: - COPD EXACERBATION DIAGNOSES: - Chronic obstructive pulmonary disease with (acute) exacerbation - Other terminal supervisor (current) drug therapy - Latex allergy status - Essential (primary) hypertension - Bipolar disorder, unspecified - terminal system operator (current) use of inhaled steroids - Type 2 diabetes mellitus without complications - [facility] (current) use of oral hypoglycemic drugs - Shortness of breath - Nicotine dependence, cigarettes, uncomplicated [email or web address]
[2019-07-21] MEDS ORDERED: LATUDA40 MG PO (12:40)
[2019-07-21] MEDS ORDERED: PREDNISONE20 MG PO (14:36)
[2019-07-21] MEDS ORDERED: IPRAT-ALBUT 0.5-3 ML INH (14:36)
--- NOTE | 2019-07-21 20:05 | EKG ---
[facility] [address] [place] [address] Signed Normal sinus rhythm Low voltage QRS Borderline ECG When compared with ECG of 02-JUL-2019 20:55, No significant change was found Confirmed by MARYSOL PÉREZ MD ([id number]) on 07/21/2019 8:05:45 PM Electronically Signed By: MARYSOL PÉREZ MD 07/21/192004 PATIENT NAME: MILLY HUFF Electrocardiogram DATE OF : 66 PHYSICIAN: MARYSOL PÉREZ MD REPORT #: [id number] REPORT IS CONFIDENTIAL AND NOT TO BE RELEASED WITHOUT AUTHORIZATION
== END 2019-07-21 14:56 | disposition home or self-care (01) ==
LOC: ED 12:18
DX: J44.1 Chronic obstructive pulmonary disease with (acute) exacerbation (principal); J06.9 Acute upper respiratory infection, unspecified; J45.909 Unspecified asthma, uncomplicated; I10 Essential (primary) hypertension; E11.9 Type 2 diabetes mellitus without complications; Z87.891 Personal history of nicotine dependence; Z91.012 Allergy to eggs; Z91.040 Latex allergy status; Z91.010 Allergy to peanuts; Z91.018 Allergy to other foods; Z79.899 Other long term (current) drug therapy; Z79.52 Long term (current) use of systemic steroids
CPT/HCPCS: 71045; 80053; 83735; 84484; 85025; 93005; 93010; 94640; 96374; 99285-25; J2930

== ENCOUNTER 2019-08-09 12:13 | Emergency (ER) | payer OTHER ==
[~2019-08-09] VITALS: Ht 160 cm; Wt 129.3 kg
--- OUTSIDE RECORDS SUMMARY | ~2019-08-09 | XMS | Clinical Summary ---
Demographics + + + | Address | [address] | | | [place] [address] | + + + | Home Phone | | + + + | Preferred Language | Unknown | + + + | Marital Status | Legally | + + + | Congregation Affiliation | Unknown | + + + | Race | Unknown | + + + | Ethnic Group | Unknown | + + + Author + + + | Author | [facility] | | | and [place] | + + + | Organization | [facility] | | | and [place] | + + + | Address | Unknown | + + + | Phone | Unavailable | + + + Support + + +---------+ + | Name | Relationship | Address | Phone | + + +---------+ + | Noemi Olea | ECON | Unknown | | + + +---------+ + Care Team Providers + +------+ + | Care Director Television Name | Role | Phone | + +------+ + | Earnestine Ruggiero MD | PCP | | + +------+ + Allergies + + + + + + | Active Allergy | Reactions | Severity | Noted | Comments | | | | | Date | | + + + + + + | Latex | Anaphylaxis | High | 03/28/20 | No food allergies | | | | | 15 | | + + + + + + | Peanut Oil | Hives | High | 12/17/19 | Hives | | | | | 16 | | + + + + + + | Soybean | Hives | High | 12/17/19 | Hives | | | | | 16 | | + + + + + + Medications + + + +---------+------+------+-------+ | Medication | Sig | Dispensed | Refills | Star | End | Statu | | | | | | t | Date | s | | | | | | Date | | | + + + +---------+------+------+-------+ | amLODIPine | Take 1 tablet by | 30 | 1 | 09/0 | | Activ | | (NORVASC) 5 mg | mouth daily. | tablet | | 8/20 | | e | | tablet | | | | 18 | | | + + + +---------+------+------+-------+ | | Take 1 tablet by | 30 | 0 | 09/0 | | Activ | | HYDROcodone-acetamin | mouth every 6 (six) | tablet | | 8/20 | | e | | ophen (NORCO) 5-325 | hours as needed for | | | 18 | | | | mg per tablet | Pain (chief | | | | | | | | complaint is chest | | | | | | | | pressure r/t SOB). | | | | | | + + + +---------+------+------+-------+ | Nebulizer MISC | Dispense and provide | 1 each | 0 | 09/0 | | Activ | | | instruction as | | | 8/20 | | e | | | needed. | | | 18 | | | + + + +---------+------+------+-------+ | albuterol | Inhale 2 puffs into | | 0 | 11/0 | | Activ | | (PROVENTIL HFA) 90 | the lungs every 4 | | | 1/20 | | e | | mcg/puff inhaler | (four) hours as | | | 18 | | | | | needed for Wheezing. | | | | | | + + + +---------+------+------+-------+ | Multiple | Take 1 tablet by | | 0 | 11/0 | | Activ | | Vitamins-Minerals | mouth daily. | | | 1/20 | | e | | (MULTIVITAMIN WITH | | | | 18 | | | | MINERALS) tablet | | | | | | | + + + +---------+------+------+-------+ | ascorbic acid | Take 1,000 mg by | | 0 | 11/0 | | Activ | | (VITAMIN C) 1000 MG | mouth 2 (two) times | | | 1/20 | | e | | tablet | daily. | | | 18 | | | + + + +---------+------+------+-------+ | loperamide | Take 2 mg by mouth 4 | | 0 | 11/0 | | Activ | | (IMODIUM) 2 mg | (four) times daily | | | 1/20 | | e | | capsule | as needed for | | | 18 | | | | | Diarrhea. | | | | | | + + + +---------+------+------+-------+ | | Take 3 mLs by | 360 mL | 0 | 11/1 | | Activ | | albuterol-ipratropiu | nebulization 2 (two) | | | 2/20 | | e | | m 2.5-0.5 mg/3 mL | Times Daily Taper | | | 18 | | | | SOLN | Before Breakfast | | | | | | | | Bedtime. | | | | | | + + + +---------+------+------+-------+ | albuterol 2.5 mg/3 | Take 6 mLs by | 20 vial | 0 | 11/1 | 11/1 | Activ | | mL nebulizer | nebulization every 6 | | | 2/20 | 2/20 | e | | solution | (six) hours as | | | 18 | 19 | | | | needed for Wheezing. | | | | | | + + + +---------+------+------+-------+ Active Problems + + + | Problem | Noted Date | + + + | Chest pain | 08/27/2018 | + + + | Mild intermittent asthma with acute exacerbation | 07/01/2018 | + + + | Dyspnea | 07/01/2018 | + + + | Class 3 obesity with serious comorbidity and body mass index | 07/01/2018 | | (BMI) of 40.0 to 44.9 in adult | | + + + | Type 2 diabetes mellitus with hyperglycemia, without long-term | 07/01/2018 | | current use of insulin | | + + + | Essential hypertension | 07/01/2018 | + + + | Leukocytosis | 07/01/2018 | + + + | Current smoker | 07/01/2018 | + + + | DAGO on CPAP | 07/01/2018 | + + + | DM (diabetes mellitus) | 12/17/2015 | + + + | Hypertension | 12/17/2015 | + + + | Nausea with vomiting | 12/17/2015 | + + + | Diarrhea | 12/17/2015 | + + + | Bipolar 1 disorder | 12/17/2015 | + + + Family History + + +------+ + | Medical History | Relation | Name | Comments | + + +------+ + | Malig hypertherm | Brother | | | + + +------+ + | Malig hypertherm | Mother | | | + + +------+ + + +------+--------+ + | Relation | Name | Status | Comments | + +------+--------+ + | Brother | | Alive | | + +------+--------+ + | Brother | | | | + +------+--------+ + | Mother | | Alive | | + +------+--------+ + | Mother | | | | + +------+--------+ + Social History + +-------+ +--------+------+ | Tobacco Use | Types | Packs/Day | Years | Date | | | | | Used | | + +-------+ +--------+------+ | Current Every Day | | 0.5 | | | | Smoker | | | | | + +-------+ +--------+------+ + + + | Sex Assigned at | Date Recorded | | | | + + + | Not on file | | + + + + + + + | Job Start Date | Occupation | Industry | + + + + | Not on file | Not on file | Not on file | + + + + + + + + | Travel History | Travel Start | Travel End | + + + + + + | No recent travel history available. | + + Last Filed Vital Signs + + + + | Vital Sign | Reading | Time Taken | + + + + | Blood Pressure | 135/66 | 09/07/20181855 PST | + + + + | Pulse | 82 | 09/07/20181855 PST | + + + + | Temperature | 37.2 C (98.9 F) | 09/07/20181855 PST | + + + + | Respiratory Rate | 20 | 09/07/20181855 PST | + + + + | Oxygen Saturation | - | - | + + + + | Inhaled Oxygen | - | - | | Concentration | | | + + + + | Weight | 121 kg (266 lb 12.2 | 09/07/20181855 PST | | | oz) | | + + + + | Height | 160 cm (5' 3") | 09/07/20181855 PST | + + + + | Body Mass Index | 47.25 | 09/07/20181855 PST | + + + + Plan of Treatment +--------+---------+ + + + | Date | Type | Specialty | Care Team | Description | +--------+---------+ + + + | 12/16/ | Office | Cardiology | Alexandra Stevens DO | | | 2019 | Visit | | [address] | | | | | | [facility] | | | | | | [address] | | | | | | | | +--------+---------+ + + + + + + + + | Health Maintenance | Due Date | Last Done | Comments | + + + + + | Vaccine: | | | | | Dtap/Tdap/Td (1 - | 7 | | | | Tdap) | | | | + + + + + | Cervical Cancer | | | | | Screening (Pap) | 8 | | | + + + + + | Breast Cancer | | | | | Screening | 3 | | | + + + + + | Vaccine: Zoster (1 | | | | | of 2) | 8 | | | + + + + + | Vaccine: Influenza | | | | | (#1) | 9 | | | + + + + + Results Not on filefrom Last 3 Months Insurance + +--------+ +--------+ +---------+--------+ | Payer | Benefi | Subscriber | Effect | Phone | Address | Type | | | t Plan | ID | feliz | | | | | | / | | Dates | | | | | | Group | | | | | | + +--------+ +--------+ +---------+--------+ | [employer] | [employer] | [id number] | | [phone] | | Medica | | MEDICAID HMO | HEALTH | | [phone]-Pr | 1 | | id | | | MDCD | | esent | | | | | | [place]MO [place] | | | | | | + +--------+ +--------+ +---------+--------+ + +--------+ +--------+ + + | Guarantor Name | Accoun | Relation to | Date | Phone | Billing Address | | | t Type | Patient | of | | | | | | | | | | + +--------+ +--------+ + + | Javed Overton | Person | Self | [birth year] | [address] | | | al/Fam | | 1970 | [phone] | [place] [address] | | | felicia | | | 1 (Home) | | + +--------+ +--------+ + + Advance Directives Patient has advance care planning documents on file. For more information, please contact:[facility] [place] [address]
--- OUTSIDE RECORDS SUMMARY | ~2019-08-09 | XMS | Clinical Summary ---
Demographics + + + | Address | [address] | | | [place] [address] | + + + | Home Phone | | + + + | Preferred Language | Unknown | + + + | Marital Status | Legally | + + + | Rastafarian Affiliation | Unknown | + + + | Race | Unknown | + + + | Ethnic Group | Unknown | + + + Author + + + | Author | [facility] | | | and [place] | + + + | Organization | [facility] | | | and [place] [...] Team Providers + +------+ + | Care Breeding Technician Name | Role | Phone | + [...] [facility] | | | | | | [address] | | | | | | | [...] | [employer] | MODA | [id number] | | [phone] | | Medica | [...] | 1970 | [phone] | [place] [address] | | | felicia | | | 1 (Home) | | + +--------+ +--------+ + + Advance Directives Patient has advance care planning documents on file. For more information, please contact:[facility] [place] [address]
--- OUTSIDE RECORDS SUMMARY | ~2019-08-09 | XMS | Clinical Summary ---
Demographics + + + | Address | [address] | | | [place] [address] | + + + | Home Phone | | + + + | Preferred Language | Unknown | + + + | Marital Status | Legally | + + + | Buddhist Affiliation | Unknown | + + + | Race | Unknown | + + + | Ethnic Group | Unknown | + + + Author + + + | Author | [facility] (Historical as of | | | 06-12-19) | + + + | Organization | [facility] (Historical as of | | | 06-12-19) | + + + | Address | Unknown | + + + | Phone | Unavailable | + + + Support + + +---------+ + | Name | Relationship | Address | Phone | + + +---------+ + | Brittany Huff | ECON | Unknown | | + + +---------+ + Care Team Providers + +------+ + | Care Bundle Tier And Labeler Name | Role | Phone | + [...] | 30 | 11 | 09/0 | | Activ | | 50 MG tablet | mouth daily. | tablet | | 9/20 | | e | | | | | | 18 | | | + + + +---------+------+------+-------+ | metFORMIN | Take 1 tablet by | 60 | 1 | 09/0 | | Activ | | (GLUCOPHAGE) 850 MG | mouth 2 (two) times | tablet | | 8/20 | | e | | tablet | daily with meals. | | | 18 | | | [...] | 1 | 1 | 09/0 | | Activ | | budesonide-formotero | the lungs 2 (two) | Inhaler | | 8/20 | | e | | l (SYMBICORT) | times daily. | | | 18 | | | | 160-4.5 MCG/ACT | | | | | | | | inhaler | | | | | | | + + + +---------+------+------+-------+ | nitroGLYCERIN | Place 1 tablet under | 30 | 1 | 09/0 | | Activ | | (NITROSTAT) 0.4 MG | the tongue every 5 | tablet | | 8/20 | | e | | SL tablet | (five) minutes as | | | 18 | | | | | needed for Chest [...] by | 360 mL | 0 | 08/27 | | Activ | | ipratropium-albutero | [...] | 07/02/2018, 12/20/2015 | | | | 8 | | [...] | [employer] | LABOR | [id number] | | | | | STATE | [...] | Self | [birth year] | Home: | [address] | | | s Comp | | 1969 | +- | [place] | | | | | | [phone] | [address] | + +--------+ +--------+ + + | MILLY HUFF | Person | Self | [birth year] | Home: | [address] | | | al/Fam | | 1969 | +- | [place] | | | [place] | | | [phone] | [address] | + +--------+ +--------+ + +
--- OUTSIDE RECORDS SUMMARY | ~2019-08-09 | XMS | Clinical Summary ---
Demographics + + + | Address | [address] | | | [place] [address] | + + + | Home Phone | | + + + | Preferred Language | Unknown | + + + | Marital Status | Legally | + + + | Restoration Affiliation | Unknown | + + + | Race | Unknown | + + + | Ethnic Group | Unknown | + + + Author + + + | Author | [facility] (Historical as of | | | 06-12-19) | + + + | Organization | [facility] (Historical as of | | | 06-12-19) [...] Team Providers + +------+ + | Care Zigzag Elastic Attacher Name | Role | Phone | + [...] | [employer] | LABOR | [id number] | | | | | STATE | [...] | Self | [birth year] | Home: | [address] | | | s Comp | | 1969 | +- | [place] | | | | | | [phone] | [address] | + +--------+ +--------+ + + | MILLY HUFF | Person | Self | [birth year] | Home: | [address] | | | al/Fam | | 1969 | +- | [place] | | | [place] | | | [phone] | [phone] | + +--------+ +--------+ + +
[~2019-08-09 12:13] MED LIST changes: +LATUDA40 MG PO
--- OUTSIDE RECORDS SUMMARY | 2019-08-09 12:16 | XMS ---
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 Care History Medical/Surgical 07/05/2019 [facility] - PATIENT HAS AN APT WITH DR RUGGIERO ON 08/24/19. - PATIENT CAN BE SEEN IN THE WALK IN CLINIC FOR NON EMERGENT MEDICAL NEEDS. 02/03/2019 [facility] - Patient is currently established with [facility]. If patient is seen in the ED during business hours. Please contact CHWs at [facility]. Care Recommendation: This patient has had 5 [...] care. E.D. VISIT COUNT (12 MO.) 2 [facility] ED 6 [facility] TOTAL 8 NOTE: Visits indicate total known visits. 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 - Other halfway (current) drug therapy 07/02/2019 17:11 [facility] [place] TYPE: Emergency COMPLAINT: - CHEST PAIN DIAGNOSES: - Precordial pain - jail (current) use of oral hypoglycemic drugs - Essential (primary) hypertension - Personal history of nicotine dependence - 1 Type 2 diabetes mellitus without complications - Angina pectoris, unspecified - Allergy to other foods - Unspecified asthma, uncomplicated - Other halfway (current) drug therapy - Latex allergy status - jail (current) use of systemic steroids 04/16/2019 11:42 [facility] [place] TYPE: Emergency COMPLAINT: - FACIAL SWELLING DIAGNOSES: - Other joint terminal attack controller (current) drug therapy - Anaphylactic shock, unspecified, initial encounter - Essential (primary) hypertension - Allergy to eggs - Latex allergy status - Dyspnea, unspecified - 1 Type 2 diabetes mellitus without complications - Allergy to peanuts - Acquired absence of other specified parts of digestive tract - Nicotine dependence, unspecified, uncomplicated - Allergy to other foods 02/08/2019 17:30 [facility] [place] TYPE: Emergency COMPLAINT: - COPD EXACERBATION 12/30/2018 03:39 [facility] TYPE: Emergency COMPLAINT: - SOB 2018 16:41 [facility] TYPE: Emergency DIAGNOSES: - asthma, sinus congestion - Unspecified asthma with (acute) exacerbation - Facial Pain - Asthma 08/27/2018 15:34 [facility] TYPE: Emergency DIAGNOSES: - Wheezing - Shortness of Breath - Cough - cough, congestion INPATIENT VISIT TRACKING (12 MO.) 02/08/2019 20:45 [facility] [place] TYPE: Medical Surgical COMPLAINT: - COPD EXACERBATION DIAGNOSES: - Essential (primary) hypertension - Latex allergy status - Essential (primary) hypertension - Nicotine dependence, unspecified, uncomplicated - Noninfective gastroenteritis and colitis, unspecified - middle or intermediate school principal (current) use of 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 steroids - Other joint terminal attack controller (current) drug therapy - Latex allergy status - Nicotine dependence, unspecified, uncomplicated - middle or intermediate school principal (current) use of systemic steroids - jail (current) use of inhaled steroids - 1 Type 2 diabetes mellitus without complications - Bipolar disorder, unspecified - Bipolar disorder, unspecified - jail (current) use of systemic steroids - Other halfway (current) drug therapy - Chronic obstructive pulmonary disease w (acute) exacerbation - Noninfective gastroenteritis and colitis, unspecified - 1 Type 2 diabetes mellitus without complications 12/30/2018 03:40 [facility] [place] TYPE: Observation COMPLAINT: - COPD EXACERBATION DIAGNOSES: - Chronic obstructive pulmonary disease w (acute) exacerbation - Other halfway (current) drug therapy - Latex allergy status - Essential (primary) hypertension - Bipolar disorder, unspecified - middle or intermediate school principal (current) use of inhaled steroids - 1 Type 2 diabetes mellitus without complications - middle or intermediate school principal (current) use of oral hypoglycemic drugs - Shortness of breath - Nicotine dependence, cigarettes, uncomplicated [email or web address]
[2019-08-09] MEDS ORDERED: ADVAIR 500-501 EACH INH (12:36)
[2019-08-09] MEDS ORDERED: LANTUS100 UNITS/ SUB-Q (14:43)
== END 2019-08-09 15:00 | disposition home or self-care (01) ==
LOC: ED 12:13
DX: E11.65 Type 2 diabetes mellitus with hyperglycemia (principal); I10 Essential (primary) hypertension; J44.9 Chronic obstructive pulmonary disease, unspecified; Z87.891 Personal history of nicotine dependence; Z91.012 Allergy to eggs; Z91.040 Latex allergy status; Z91.010 Allergy to peanuts; Z91.018 Allergy to other foods; Z79.899 Other long term (current) drug therapy; Z79.52 Long term (current) use of systemic steroids
CPT/HCPCS: 71045; 80053; 81001; 82010; 85025; 96360; 99285-25; J7030

== ENCOUNTER 2021-01-13 13:26 | Emergency (ER) | payer OTHER ==
[~2021-01-13] VITALS: Ht 160 cm; Wt 129.3 kg
[~2021-01-13 13:26] MED LIST changes: +ADVAIR 500-501 EACH INH; +LANTUS100 UNITS/ SUB-Q
--- OUTSIDE RECORDS SUMMARY | 2021-01-13 13:28 | XMS ---
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 HUFF Security Hospice Liaison Events No recent Security Events currently on file CRITERIA MET - History of Sepsis Dx - PDMP CARE PROVIDERS ALBA ALY Internal Medicine: Pulmonary Disease 02/03/2019-Current PHONE: Unknown Care Guidelines exist for the following facilities: [facility] ( 12/11/2020 ) Care History Medical/Surgical 08/10/2019 [facility] REFERRAL MADE TO PATIENT INSURANCE- DUE TO PATIENT CHRONIC HEALTH CONDITIONS -DIABETES-COPD. - FURTHER EDUCATION AND CLOSE FOLLOW UP IS NEEDED. 07/05/2019 [facility] - PATIENT HAS AN APT WITH DR WILLIS ON 08/24/19. - PATIENT CAN BE SEEN IN THE WALK IN CLINIC FOR NON EMERGENT MEDICAL NEEDS. 02/03/2019 [facility] - Patient is currently established with [facility]. If patient is seen in the ED during business hours. Please contact [facility] at [facility]. Care Recommendation: This patient has had 5 or more Emergency Department visits in the last 12 months.\T\nbsp; Patient requires education on the scope and purpose of the ED as an acute care provider not a Primary Care Provider and should not be utilized for chronic conditions.\T\nbsp; These are guidelines and the provider should exercise clinical judgment when providing care. ENimisha VISIT COUNT (12 MO.) 1 [facility] TOTAL 1 NOTE: Visits indicate total known visits. ED/UCC VISIT TRACKING (12 MO.) 01/13/2021 13:27 [facility] [place] TYPE: Emergency COMPLAINT: - HEADACHE INPATIENT VISIT TRACKING (12 MO.) No inpatient visits to display in this time frame [email or web address]
[2021-01-13] MEDS ORDERED: TRULICITY1.5 MG/0.5 SUB-Q (14:16)
[2021-01-13] MEDS ORDERED: TOPIRAMATE100 MG PO (14:17)
[2021-01-13] MEDS ORDERED: OMEPRAZOLE20 MG PO (14:17)
[2021-01-13] MEDS ORDERED: BISOPROLOL FUMAR5 MG PO (14:18)
[2021-01-13] MEDS ORDERED: IMITREX6 MG/0.52 INJ (18:47)
== END 2021-01-13 19:06 | disposition home or self-care (01) ==
LOC: ED 13:26
DX: G43.909 Migraine, unspecified, not intractable, without status migrainosus (principal); J44.9 Chronic obstructive pulmonary disease, unspecified; I10 Essential (primary) hypertension; E11.9 Type 2 diabetes mellitus without complications; F17.200 Nicotine dependence, unspecified, uncomplicated; Z88.8 Allergy status to other drugs, medicaments and biological substances; Z91.012 Allergy to eggs; Z91.040 Latex allergy status; Z91.010 Allergy to peanuts; Z91.018 Allergy to other foods; Z79.899 Other long term (current) drug therapy
CPT/HCPCS: 96374; 96375; 99283-25; J1200; J1885; J2765; J3030; J7030

== ENCOUNTER 2021-05-19 21:46 | Emergency (ER) | payer OTHER ==
[~2021-05-19] VITALS: Ht 160 cm; Wt 129.3 kg
[~2021-05-19 21:46] MED LIST changes: +BISOPROLOL FUMAR5 MG PO; +IMITREX6 MG/0.52 INJ; +OMEPRAZOLE20 MG PO; +TOPIRAMATE100 MG PO; +TRULICITY1.5 MG/0.5 SUB-Q
== END 2021-05-20 01:15 | disposition home or self-care (01) ==
LOC: ED 21:46
DX: G43.909 Migraine, unspecified, not intractable, without status migrainosus (principal); J45.909 Unspecified asthma, uncomplicated; I10 Essential (primary) hypertension; E11.9 Type 2 diabetes mellitus without complications; J44.9 Chronic obstructive pulmonary disease, unspecified; F17.200 Nicotine dependence, unspecified, uncomplicated; Z88.8 Allergy status to other drugs, medicaments and biological substances; Z91.018 Allergy to other foods; Z91.010 Allergy to peanuts; Z91.040 Latex allergy status; Z91.012 Allergy to eggs; Z79.899 Other long term (current) drug therapy
CPT/HCPCS: 96374; 96375; 99283-25; J0780; J1100; J1200; J1885; J7030